=== PATIENT | male | born 1990 | race Caucasian/White ===

== ENCOUNTER 2022-06-21 07:46 | Emergency (ER) | payer BC, OTHER ==
[~2022-06-21] VITALS: Ht 170.2 cm; Wt 70.8 kg
[2022-06-21] MEDS ORDERED: ACID REDUCER10 MG PO (08:03)
[2022-06-21] MEDS ORDERED: PRILOSEC OTC20 MG PO (08:17)
--- NOTE | 2022-06-23 21:59 | EKG ---
[facility] [address] [facility] [place] [address] Signed Normal sinus rhythm Normal ECG No previous ECGs available Confirmed by Cynthia Willard MD () on 06/23/2022 9:59:01 PM Electronically Signed By: CYNTHIA WILLARD MD 06/23/22 215 PATIENT NAME: GREGORY CEDILLO Electrocardiogram DATE OF : 88 PHYSICIAN: CYNTHIA WILLARD MD REPORT #: [id number] REPORT IS CONFIDENTIAL AND NOT TO BE RELEASED WITHOUT AUTHORIZATION
== END 2022-06-21 08:30 | disposition home or self-care (01) ==
LOC: ED 07:46
DX: F41.0 Panic disorder [episodic paroxysmal anxiety] (principal); K21.9 Gastro-esophageal reflux disease without esophagitis; Z88.0 Allergy status to penicillin
CPT/HCPCS: 93005; 93010; 99283-25

== ENCOUNTER 2023-01-09 13:22 | Emergency (ER) | payer BC ==
[~2023-01-09] VITALS: Ht 170.2 cm; Wt 70.8 kg
[~2023-01-09 13:22] MED LIST: ACID REDUCER10 MG PO; PRILOSEC OTC20 MG PO
[2023-01-09 18:34] VITALS: BP 141/73
== END 2023-01-09 18:35 | disposition home or self-care (01) ==
LOC: ED 13:22
DX: S02.2XXA Fracture of nasal bones, initial encounter for closed fracture (principal); W22.09XA Striking against other stationary object, initial encounter; K21.9 Gastro-esophageal reflux disease without esophagitis; Z88.5 Allergy status to narcotic agent; Z88.0 Allergy status to penicillin; Z79.899 Other long term (current) drug therapy
CPT/HCPCS: 70450; 70486; 99283 25